=== PATIENT | female | born 1950 | race Caucasian/White ===

== ENCOUNTER → 2016-10-08 16:37 | Outpatient (CLI) | payer MEDICARE, BC ==
[2016-09-04 11:33] VITALS: BMI 25.8
[~2016-10-08 16:37] MED LIST: CRESTOR40 MG PO; LIPITOR80 MG PO; NORCO 7.5/325 T1 TA1 PO; SINGULAIR10 MG PO; TOPROL XL25 MG PO; ZOCOR20 MG PO
== END | disposition home or self-care (01) ==
LOC: D.MAMMO 10:30
DX: Z12.31 Encounter for screening mammogram for malignant neoplasm of breast (principal)

== ENCOUNTER → 2016-11-05 19:30 | Outpatient (CLI) | payer MEDICARE, BC ==
[2016-09-04 11:33] VITALS: BMI 25.8
== END | disposition home or self-care (01) ==
LOC: D.MAMMO 14:30
DX: R92.8 Other abnormal and inconclusive findings on diagnostic imaging of breast (principal)

== ENCOUNTER → 2017-03-05 09:21 | Outpatient (CLI) | payer MEDICARE, BC ==
[~2017-03-05] VITALS: Ht 162.6 cm; Wt 68.2 kg
[2017-03-05 10:43] VITALS: BP 121/70; Ht 162.6 cm; Wt 68.2 kg
== END | disposition home or self-care (01) ==
LOC: D.OPS 09:21
DX: M81.0 Age-related osteoporosis without current pathological fracture (principal)

== ENCOUNTER → 2017-05-10 08:37 | Outpatient (CLI) | payer MEDICARE, BC ==
[2017-03-05 10:43] VITALS: BMI 25.8
== END | disposition home or self-care (01) ==
LOC: D.RT 08:37
DX: J44.9 Chronic obstructive pulmonary disease, unspecified (principal)

== ENCOUNTER 2017-09-25 11:24 | Outpatient (CLI) | payer MEDICARE, BC ==
[2017-09-25 12:06] VITALS: Ht 162.6 cm
== END 2017-09-25 12:15 ==
LOC: D.OPS 11:24
DX: M81.0 Age-related osteoporosis without current pathological fracture (principal)

== ENCOUNTER → 2017-10-09 07:18 | Outpatient (CLI) | payer MEDICARE, BC | END | disposition home or self-care (01) | LOC: D.US 07:18 | DX: R10.9 Unspecified abdominal pain (principal) ==

== ENCOUNTER → 2018-04-03 20:57 | Outpatient (CLI) | payer MEDICARE, BC ==
[~2018-04-03 20:57] MED LIST changes: +ALBUTEROL1.25 MG/3; +BACTRIM DS TABL1 TAB PO; +VENTOLIN HFA18 GM INH
== END | disposition home or self-care (01) ==
LOC: D.MAMMO 10:15
DX: Z12.31 Encounter for screening mammogram for malignant neoplasm of breast (principal)

== ENCOUNTER 2018-04-17 11:10 | Outpatient (CLI) | payer MEDICARE, BC ==
[~2018-04-17] VITALS: Ht 162.6 cm; Wt 70.5 kg
[~2018-04-17 11:10] MED LIST changes: -ALBUTEROL1.25 MG/3; -BACTRIM DS TABL1 TAB PO; -VENTOLIN HFA18 GM INH
[2018-04-17 11:48] VITALS: BP 143/76; Ht 162.6 cm; Wt 70.5 kg
[2018-04-22] MEDS ORDERED: BACTRIM DS TABL1 TAB PO (14:14)
[2018-04-22] MEDS ORDERED: LIPITOR80 MG PO (14:15)
[2018-04-22] MEDS ORDERED: ALBUTEROL1.25 MG/3 (14:16)
[2018-04-22] MEDS ORDERED: VENTOLIN HFA18 GM INH (14:17)
== END 2018-04-17 11:55 | disposition home or self-care (01) ==
LOC: D.OPS 11:10
DX: M81.0 Age-related osteoporosis without current pathological fracture (principal); Z01.812 Encounter for preprocedural laboratory examination

== ENCOUNTER → 2018-04-18 08:47 | Outpatient (CLI) | payer MEDICARE, BC ==
[2018-04-17 11:48] VITALS: BMI 26.6
[~2018-04-18 08:47] MED LIST changes: +ALBUTEROL1.25 MG/3; +BACTRIM DS TABL1 TAB PO; +VENTOLIN HFA18 GM INH
== END | disposition home or self-care (01) ==
LOC: D.US 08:47
DX: R22.9 Localized swelling, mass and lump, unspecified (principal)

== ENCOUNTER 2018-04-23 10:10 | Day surgery (SDC) | payer MEDICARE, BC ==
[2018-04-22 15:06] LABS: BASOPHILS 0.9 % (0-2); EOSINOPHILS 5.7 % (0-7); HEMOGLOBIN 11.9 g/dL (12-16); LYMPHOCYTES 40.7 % (15-50); MCV 91.1 fL (80.0-100.0); MEAN PLATELET VOLUME 8.9 fL (7.4-10.4); MONOCYTES 10.2 % (2-11); NEUTROPHILS 42.5 % (40-80); PLATELET COUNT 135 10x3/uL (130-400); RBC 3.84 10x6/uL (4.00-5.40); RDW 13.2 % (11.5-14.5); WBC 4.6 10x3/uL (4.8-10.8)
[2018-04-22 15:21] LABS: ANION GAP 10.4 mmol/L (8-16); CARBON DIOXIDE 30.1 mmol/L (21.0-32.0); CREATININE - SERUM 1.1 mg/dL (0.6-1.3); POTASSIUM - SERUM 4.5 mmol/L (3.5-5.1)
[2018-04-22 16:04] LABS: ERYTHROCYTE SEDIMENTATION RATE 4 mm/hr (0-30)
[~2018-04-23] VITALS: Ht 162.6 cm; Wt 69.9 kg
[2018-04-23 13:57] VITALS: BP 133/61; Ht 162.6 cm; Wt 69.9 kg
== END 2018-04-23 19:38 | disposition home or self-care (01) ==
LOC: D.OPS 10:10 → D.PAN 12:30 → D.OPS 12:30
PROVIDERS: Orthopaedic Surgery
DX: R22.31 Localized swelling, mass and lump, right upper limb (principal); Z53.29 Procedure and treatment not carried out because of patient's decision for other reasons

== ENCOUNTER → 2018-04-24 16:00 | Outpatient (CLI) | payer MEDICARE, BC ==
[2018-04-23 13:57] VITALS: BMI 26.5
== END | disposition home or self-care (01) ==
LOC: D.LABREF 16:00
DX: M25.511 Pain in right shoulder (principal); L02.413 Cutaneous abscess of right upper limb

== ENCOUNTER → 2018-04-24 16:09 | Outpatient (CLI) | payer MEDICARE, BC ==
[2018-04-23 13:57] VITALS: BMI 26.5
== END | disposition home or self-care (01) ==
LOC: D.LABREF 16:09
DX: M25.511 Pain in right shoulder (principal); L02.413 Cutaneous abscess of right upper limb

== ENCOUNTER → 2018-08-06 09:25 | Outpatient (CLI) | payer MEDICARE, BC ==
[2018-04-23 13:57] VITALS: BMI 26.5
== END | disposition home or self-care (01) ==
LOC: D.RT 06-27 10:00 → D.RAD 06-27 11:00 → D.RT 09:25
DX: J45.909 Unspecified asthma, uncomplicated (principal)

== ENCOUNTER 2018-10-16 12:38 | Outpatient (CLI) | payer MEDICARE, BC ==
[~2018-10-16] VITALS: Ht 162.6 cm; Wt 79.5 kg
[2018-10-16 15:01] VITALS: BP 143/61; Ht 162.6 cm; Wt 79.5 kg
== END 2018-10-16 14:20 | disposition home or self-care (01) ==
LOC: D.OPS 12:38
DX: M81.0 Age-related osteoporosis without current pathological fracture (principal); Z01.812 Encounter for preprocedural laboratory examination

== ENCOUNTER → 2019-01-13 08:34 | Outpatient (CLI) | payer MEDICARE, BC | END | disposition home or self-care (01) | LOC: D.RAD 08:34 | DX: J45.901 Unspecified asthma with (acute) exacerbation (principal) ==

== ENCOUNTER 2019-05-06 13:02 | Outpatient (CLI) | payer MEDICARE, BC ==
[~2019-05-06] VITALS: Ht 162.6 cm; Wt 68.2 kg
[2019-05-06 13:32] VITALS: BP 130/62; Ht 162.6 cm; Wt 68.2 kg
== END 2019-05-06 14:08 | disposition home or self-care (01) ==
LOC: D.OPS 13:02
PROVIDERS: ATTEND Family Medicine
DX: M81.0 Age-related osteoporosis without current pathological fracture (principal)

== ENCOUNTER → 2019-08-11 12:20 | Outpatient (CLI) | payer MEDICARE, BC ==
[2019-05-06 13:32] VITALS: BMI 25.8
== END | disposition home or self-care (01) ==
LOC: D.RT 07-21 14:00
PROVIDERS: ATTEND Internal Medicine Pulmonary Disease
DX: J45.909 Unspecified asthma, uncomplicated (principal)

== ENCOUNTER → 2019-08-19 09:51 | Outpatient (CLI) | payer MEDICARE, BC ==
[2019-05-06 13:32] VITALS: BMI 25.8
== END | disposition home or self-care (01) ==
LOC: D.RAD 09:51
PROVIDERS: ATTEND Internal Medicine Pulmonary Disease
DX: J45.909 Unspecified asthma, uncomplicated (principal)

== ENCOUNTER 2020-05-04 15:40 | Outpatient (CLI) | payer MEDICARE, BC ==
[~2020-05-04] VITALS: Ht 162.6 cm; Wt 60.0 kg
[2020-05-04 11:41] VITALS: BP 126/54; Ht 162.6 cm; Wt 60.0 kg
== END 2020-05-04 17:23 | disposition home or self-care (01) ==
LOC: D.OPS 15:40
PROVIDERS: ATTEND Family Medicine
DX: M81.0 Age-related osteoporosis without current pathological fracture (principal); E78.5 Hyperlipidemia, unspecified